=== PATIENT | male | born 1990 | race Caucasian/White ===

== ENCOUNTER 2017-05-19 15:11 | Emergency (ER) | payer BC ==
[~2017-05-19] VITALS: Ht 172.7 cm; Wt 103.5 kg
[2017-05-19 15:21] VITALS: TEMP 36.5; Ht 172.7 cm; Wt 103.5 kg
[2017-05-19] MEDS ORDERED: SODIUM CHLORIDE 0.9% 1000ML 1,000 ML IV STA (15:39)
[2017-05-19] MEDS ORDERED: MECLIZINE HCL 25 MG TAB PO STA (15:39)
--- NOTE | 2017-05-19 15:50 | EMERGENCY ROOM VISIT NOTE ---
History First contact with patient: 15:30 Chief Complaint: DIZZY Stated Complaint: DIZZY,SICK,BLURRY EYES Nursing Triage Summary: pt reports dizzy with nausea and blurred visiion X 1 week , states last week I vomitted often but this went away denies pain or BAGLEY History of Present Illness The patient is a 27 year old male who presents to the Emergency Room via private vehicle accompanied by family with complaints of "dizzy, sick, blurry eyes". The patient states that last Saturday, he went to work and then began to feel dizzy, felt nauseous, and vomited. He states that the nausea and vomiting has disappeared, and he even felt better yesterday. Unfortunately when he woke up today, he felt as if her vomiting was spinning again, and also felt nauseous. He describes a sensation as if the room is spinning. He denies any history of vertigo, or family history of vertigo. He has never had this before. He denies any speech troubles or arm or leg weakness. Review of Systems A complete 10-point Review of Systems was discussed with the patient, with pertinent positives and negatives listed in the History of Present Illness. All remaining Review of Systems questions can be considered negative unless otherwise specified. Past Medical/Surgical History No pertinent. Family History No pertinent. Social History Smoking Status: Never Smoker Social History: Patient is currently employed and lives locally. Current/Historical Medications Scheduled Meclizine Hcl (Meclizine Hcl), 1 TAB PO TID Prednisone (Prednisone), 0 PO DAILY Scheduled PRN Cetirizine (Zyrtec), 10 MG PO DAILY PRN for Seasonal Allergies Allergies Uncoded Allergies: NKDA (Allergy, Unknown, 06/29/05) Physical Exam Vital Signs Date Time Temp Pulse Resp B/P (MAP) Pulse Ox O2 Delivery O2 Flow Rate FiO2 05/19/17 19:02 62 17 110/82 97 Room Air 05/19/17 16:50 63 16 143/80 05/19/17 16:03 64 18 135/85 97 Room Air 74 136/90 82 134/88 05/19/17 16:03 Room Air 05/19/17 15:59 53 05/19/17 15:21 36.5 68 18 138/98 98 Room Air Physical Exam VITAL SIGNS - Vital signs and nursing notes were reviewed. Patient is afebrile , blood pressure 138/98, non-tachycardic and is saturating well on room air 98%. GENERAL -27-year-old male appearing his stated age who is in no acute distress. Communicates well with provider and answers questions appropriately. SKIN - Without rashes. No petechial rashes. HEAD - NC/AT. EYES - PERRL with EOMI bilaterally. Sclera anicteric. There is horizontal nystagmus in both left and right directional gazes. EARS - No deformities of external structures noted on gross examination bilaterally. NOSE - Midline and without cyanosis. No epistaxis or purulent drainage noted. Septum midline without deviation or septal hematoma noted. MOUTH/OROPHARYNX - Without perioral cyanosis. Buccal mucosa pink and moist and without leukoplakia. NECK - Neck with FROM. Supple to palpation. LUNGS - Chest wall symmetric without accessory muscle use, intercostals retractions, or central cyanosis. Normal vesicular breath sounds CTA B/L. No wheezes, rales, or rhonchi appreciated. CARDIAC - RRR with S1/S2. No murmur, rubs, or gallops appreciated. EXTREMITIES - No clubbing or peripheral cyanosis. No pretibial edema present. + 5/5 strength noted in UE/LE bilaterally. NEUROLOGIC - Cranial nerves II through XII grossly intact. Sensory intact to light touch throughout. Patellar reflexes +2/4. PSYCH - A&Ox3 and cooperates fully with examiner. Pt is very pleasant and interacts well with examiner. Medical Decision & Procedures ER Provider Diagnostic Interpretation: HEAD CT NONCONTRAST CT DOSE: 537.48 mGy.cm HISTORY: Dizziness, emesis TECHNIQUE: Multiaxial CT images of the head were performed without the use of intravenous contrast. Automated exposure control was utilized for this study. A dose lowering technique was utilized adhering to the principles of ALARA. Comparison: None. Findings: Mild mucosal thickening within the ethmoid air cells. The mastoid air cells are clear. The calvarium and skull base are intact. The ventricles and sulci are within normal limits. There is no mass, hematoma, midline shift, or acute infarct. Impression: No acute intracranial abnormality. Electronically signed by: Jhonatan Hall M.D. 05/19/2017 4:46 PM Dictated Date/Time: 05/19/2017 4:40 PM Laboratory Results 05/19/17 15:45 Red Blood Count 5.05, Mean Corpuscular Volume 85.5, Mean Corpuscular Hemoglobin 31.5, Mean Corpuscular Hemoglobin Concent 36.8, Mean Platelet Volume 9.0, Neutrophils (%) (Auto) 69.7, Lymphocytes (%) (Auto) 17.5, Monocytes (%) (Auto) 8.4, Eosinophils (%) (Auto) 3.8, Basophils (%) (Auto) 0.2, Neutrophils # (Auto) 7.21, Lymphocytes # (Auto) 1.81, Monocytes # (Auto) 0.87, Eosinophils # (Auto) 0.39, Basophils # (Auto) 0.02 05/19/17 15:45 Test 05/19/17 15:45 White Blood Count 10.34 K/uL (4.8-10.8) Red Blood Count 5.05 M/uL (4.7-6.1) Hemoglobin 15.9 g/dL (14.0-18.0) Hematocrit 43.2 % (42-52) Mean Corpuscular Volume 85.5 fL (80-100) Mean Corpuscular Hemoglobin 31.5 pg (25-34) Mean Corpuscular Hemoglobin Concent 36.8 g/dl (32-36) Platelet Count 286 K/uL (130-400) Mean Platelet Volume 9.0 fL (7.4-10.4) Neutrophils (%) (Auto) 69.7 % Lymphocytes (%) (Auto) 17.5 % Monocytes (%) (Auto) 8.4 % Eosinophils (%) (Auto) 3.8 % Basophils (%) (Auto) 0.2 % Neutrophils # (Auto) 7.21 K/uL (1.4-6.5) Lymphocytes # (Auto) 1.81 K/uL (1.2-3.4) Monocytes # (Auto) 0.87 K/uL (0.11-0.59) Eosinophils # (Auto) 0.39 K/uL (0-0.5) Basophils # (Auto) 0.02 K/uL (0-0.2) RDW Standard Deviation 38.1 fL (36.4-46.3) RDW Coefficient of Variation 12.3 % (11.5-14.5) Immature Granulocyte % (Auto) 0.4 % Immature Granulocyte # (Auto) 0.04 K/uL (0.00-0.02) Anion Gap 8.0 mmol/L (3-11) Est Creatinine Clear Calc Drug Dose 144.7 ml/min Estimated GFR () 135.3 Estimated GFR (Non- 116.7 BUN/Creatinine Ratio 16.3 (10-20) Calcium Level 9.4 mg/dl (8.5-10.1) Magnesium Level 2.3 mg/dl (1.8-2.4) Total Bilirubin 0.6 mg/dl (0.2-1) Aspartate Amino Transf (AST/SGOT) 20 U/L (15-37) Alanine Aminotransferase (ALT/SGPT) 42 U/L (12-78) Alkaline Phosphatase 69 U/L (45-117) Total Protein 7.7 gm/dl (6.4-8.2) Albumin 4.4 gm/dl (3.4-5.0) Globulin 3.3 gm/dl (2.5-4.0) Albumin/Globulin Ratio 1.3 (0.9-2) Thyroid Stimulating Hormone (TSH) 1.360 uIu/ml (0.300-4.500) Lyme Disease IgG Antibody NEG (NEG) Lyme Disease IgM Antibody NEG (NEG) Medications Administered Medications (Trade) Dose Ordered Sig/[place] Route Start Time Stop Time Status Last Admin Dose Admin Meclizine HCl (Antivert Tab) 25 mg NOW STAT PO 05/19/17 15:39 05/19/17 15:41 DC 05/19/17 15:43 25 MG Sodium Chloride 1,000 ml @ 999 mls/hr Q1H1M STAT IV 05/19/17 15:39 05/19/17 16:39 DC 05/19/17 16:21 999 MLS/HR Diazepam (Valium Inj) 5 mg NOW STAT IV 05/19/17 17:32 05/19/17 17:33 DC 05/19/17 17:42 5 MG Ondansetron HCl (Zofran Inj) 4 mg NOW STAT IV 05/19/17 17:32 05/19/17 17:33 DC 05/19/17 17:42 4 MG Methylprednisolone Sodium Succinate (Solu-Medrol IV) 125 mg NOW STAT IV 05/19/17 17:50 05/19/17 17:51 DC 05/19/17 19:02 125 MG Medical Decision Patient was seen and evaluated as above. He presents to us today with dizziness , described as the room spinning. There is no speech difficulty, or extremity weakness. I suspect vertigo. There is horizontal nystagmus in both directions. CT scan of the head was obtained after discussing benefit versus risk, and was negative with results as above. Bedside EKG was obtained to rule out arrhythmias and reveals normal sinus rhythm, with sinus arrhythmia. No ectopy or ischemic change. No previous EKGs available. He was given normal saline, and Antivert. CBC reveals no leukocytosis, or concerning anemia. Metabolic panel was unremarkable. Lyme testing is negative. He is reevaluated , and was still feeling dizzy. He was given 10 mg of Valium, Zofran and reevaluated and still feeling dizzy, but noted be feeling slightly better. He was then given 125 mg a slight Medrol intravenously, was reevaluated and was feeling slightly better. He was able to ambulate, imbalance with his eyes closed. He was conversing without difficulty. I do believe this time he is stable for outpatient management, but was offered inpatient admission. He notes that he prefers to go home and follow-up with his family doctor. I do believe that this is reasonable. He'll be given a short prescription for Antivert. The case was discussed with the attending physician. He will also be given a prescription for a Prevacid as a taper. He was educated upon worrisome symptoms which to return, had questions or discharge, and was discharged home in good condition. I again suspect vertigo. In the evaluation and treatment of this patient, the following differential diagnoses were considered: Concussion, vertigo, Contrecoup Injury, Brain Tumor, Depression, Encephalitis, Hypothyroidism, Meningitis, CVA, TIA, Migraine, Cluster Headache, Intracranial Abnormality, Intracranial Hemorrhage, Subdural Hematoma, Subarachnoid Hemorrhage, Hydrocephalus. Impression Primary Impression: Dizziness Additional Impression: Vertigo Departure Information Dispostion Home / Self-Care Condition GOOD Prescriptions Meclizine Hcl (MECLIZINE HCL) 25 Mg Tab 1 TAB PO TID for Dizziness or Vertigo for 30 Days, #90 TAB Prov: Tristin Ware PA-C 05/19/17 Prednisone (Prednisone) 20 Mg Tab 0 PO DAILY, #18 TAB 3 DAILY FOR 3 DAYS, THEN 2 DAILY FOR 3 DAYS, THEN 1 DAILY FOR 3 DAYS. Prov: Tristin Ware PA-C 05/19/17 Referrals Vernon Doyle M.D. (PCP) Patient Instructions My [facility] Additional Instructions You were seen in the emergency department for dizziness. Your CAT scan does not show any emergent process. Your blood work does not reveal any emergent findings. I suspect the most likely experiencing vertigo. You have been prescribed Prednisone as directed. This is an anti-inflammatory medicine to be used to help minimize your symptoms. You should take the COMPLETE course of the medication. The Antivert is 1 tablet as needed every 8 hours for dizziness. Please take this only as needed for vertigo. Please schedule follow-up with your family doctor. You may need to see an [facility]_ [facility]_ [facility] THRO[facility] SPECIALIST Please return to the emergency department with any new/concerning symptoms. HEAD CT NONCONTRAST CT DOSE: 537.48 mGy.cm HISTORY: Dizziness, emesis TECHNIQUE: Multiaxial CT images of the head were performed without the use of intravenous contrast. Automated exposure control was utilized for this study. A dose lowering technique was utilized adhering to the principles of ALARA. Comparison: None. Findings: Mild mucosal thickening within the ethmoid air cells. The mastoid air cells are clear. The calvarium and skull base are intact. The ventricles and sulci are within normal limits. There is no mass, hematoma, midline shift, or acute infarct. Impression: No acute intracranial abnormality. Problem Qualifiers
[2017-05-19 16:01] LABS: BASO % 0.2 %; BASO ABS # 0.02 K/uL (0-0.2); COMPLETE YES; EOS % 3.8 %; HEMATOCRIT 43.2 % (42-52); IG% 0.4 %; LYMPH % 17.5 %; LYMPH ABS # 1.81 K/uL (1.2-3.4); MEAN CELL VOLUME 85.5 fL (80-100); MEAN CORPUSCULAR HEMOGLOBIN 31.5 pg (25-34); MEAN CORPUSCULAR HGB CONC 36.8 g/dl (32-36); MONO % 8.4 %; NEUT % 69.7 %; PLATELET COUNT 286 K/uL (130-400); RED BLOOD COUNT 5.05 M/uL (4.7-6.1); WHITE BLOOD COUNT 10.34 K/uL (4.8-10.8)
[2017-05-19 16:20] LABS: BUN/CREATININE RATIO 16.3 (10-20); CALCIUM 9.4 mg/dl (8.5-10.1); CREATININE 0.91 mg/dl (0.60-1.40); MAGNESIUM 2.3 mg/dl (1.8-2.4); POTASSIUM 3.8 mmol/L (3.5-5.1)
[2017-05-19 16:31] LABS: ALB/GLOB RATIO 1.3 (0.9-2); THYROID STIMULATING HORMONE 1.36 uIu/ml (0.300-4.500)
[2017-05-19] MEDS ORDERED: CETI10TA84 PO (16:41)
--- NOTE | 2017-05-19 16:48 | DIAGNOSTIC IMAGING REPORT ---
HEAD CT NONCONTRAST CT DOSE: 537.48 mGy.cm HISTORY: Dizziness, emesis TECHNIQUE: Multiaxial CT images of the head were performed without the use of intravenous contrast. Automated exposure control was utilized for this study. A dose lowering technique was utilized adhering to the principles of ALARA. Comparison: None. Findings: Mild mucosal thickening within the ethmoid air cells. The mastoid air cells are clear. The calvarium and skull base are intact. The ventricles and sulci are within normal limits. There is no mass, hematoma, midline shift, or acute infarct. Impression: No acute intracranial abnormality. Electronically signed by: Jhonatan Hall M.D. 05/19/2017 4:46 PM Dictated Date/Time: 05/19/2017 4:40 PM
[2017-05-19 16:54] LABS: LYME DISEASE AB IGG NEG (NEG); LYME DISEASE AB IGM NEG (NEG)
[2017-05-19] MEDS ORDERED: DIAZEPAM INJ 5 MG/ML 2 ML CARP IV STA (17:32)
[2017-05-19] MEDS ORDERED: ONDANSETRON INJ 2 MG/ML 2 ML VIAL IV STA (17:32)
[2017-05-19] MEDS ORDERED: METHYLPREDNISOLONE 125 MG VIAL IV STA (17:50)
[2017-05-19 19:02] VITALS: BP 110/82; PULSE 62; O2SAT 97
[2017-05-19] MEDS ORDERED: PRED20TA PO (19:17)
[2017-05-19] MEDS ORDERED: MECL1TAB42 PO (19:18)
== END 2017-05-19 19:46 | disposition home or self-care (01) ==
LOC: C.EDB 15:11 → C.EDA 19:46
DX: R42 Dizziness and giddiness (principal); R11.2 Nausea with vomiting, unspecified

== ENCOUNTER → 2017-06-27 | Outpatient (CLI) | payer BC ==
[~2017-06-27] MED LIST: CETI10TA84 PO; GADAVIST IV PRN; PRED20TA PO
--- NOTE | 2017-06-27 16:33 | DIAGNOSTIC IMAGING REPORT ---
ORBITS FOR MRI CLINICAL HISTORY: 27 years-old Male presenting with R/O F.B FOR MRI. TECHNIQUE: 3 views of the orbits were obtained. COMPARISON: None. FINDINGS: No radiopaque foreign body projects over the orbits. Bony orbits grossly intact. Paranasal sinuses grossly clear. Visualized portion of the calvarium intact. IMPRESSION: No intraorbital metallic foreign body to preclude MRI exam. Electronically signed by: Ayush Bronson M.D. 06/27/2017 4:31 PM Dictated Date/Time: 06/27/2017 4:31 PM
--- NOTE | 2017-06-27 17:58 | DIAGNOSTIC IMAGING REPORT ---
BRAIN COMBO FOR IAC CLINICAL HISTORY: Dizziness. COMPARISON STUDY: Head CT May 19, 2017. TECHNIQUE: Utilizing 1.5 Saadia magnet and dedicated coil, multiplanar, multi echo imaging of the brain was performed pre and postcontrast administration with thin cut imaging through the internal auditory canals. Injection of 10 cc of Gadavist IV was uneventful. FINDINGS: There are no areas of restricted diffusion. No acute intracranial hemorrhage, midline shift or mass effect is present. Brain volume is normal. Slight asymmetry of the lateral ventricles reflects physiologic variation. There is no intracranial mass or pathologic enhancement. No abnormalities are identified within the internal auditory canals. Specifically, no mass or abnormal enhancement is identified. There is no cerebellopontine angle mass. There is no fluid within mastoid air cells. Semicircular canals are intact. No areas of parenchymal signal abnormality are present. Calvarial signal is normal. There is minimal ethmoid sinus mucosal thickening. Orbits are unremarkable. IMPRESSION: Unremarkable MRI of the brain and internal auditory canals. Electronically signed by: Sherman Lomas M.D. 06/27/2017 5:57 PM Dictated Date/Time: 06/27/2017 5:51 PM
== END | disposition home or self-care (01) ==
LOC: C.MRI 15:37
DX: R42 Dizziness and giddiness (principal)